=== PATIENT | male | born 1990 | race Caucasian/White ===

== ENCOUNTER 2016-04-28 02:59 | Emergency (ER) | payer BC ==
[~2016-04-28] VITALS: Ht 175.3 cm; Wt 82.0 kg
[2016-04-28 03:05] VITALS: TEMP 36.7; Ht 175.3 cm; Wt 82.0 kg
[2016-04-28] MEDS ORDERED: LIDOCAINE/EPINEPH/TETRACAINE 1 EA SYR EXT STA (03:16)
[2016-04-28] MEDS ORDERED: ATOR-24 PO (03:20)
[2016-04-28] MEDS ORDERED: FLUO40CA8 PO (03:21)
[2016-04-28] MEDS ORDERED: OXYCODONE IR HOME PACK PO ONE (04:00)
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
[2016-04-28 05:19] VITALS: BP 117/60; PULSE 96; O2SAT 95
--- NOTE | 2016-04-28 06:49 | DIAGNOSTIC IMAGING REPORT ---
HEAD CT NONCONTRAST CT DOSE: 537.48 mGy.cm HISTORY: head injury TECHNIQUE: Multiaxial CT images of the head were performed without the use of intravenous contrast. Comparison: None. Findings: The paranasal sinuses and mastoid air cells are clear. The calvarium and skull base are intact. The ventricles and sulci are within normal limits. There is no mass, hematoma, midline shift, or acute infarct. Impression: No acute intracranial abnormality. Electronically signed by: Vince Colunga M.D. 04/28/2016 6:47 AM Dictated Date/Time: 04/28/2016 6:47 AM
--- NOTE | 2016-04-28 08:15 | DIAGNOSTIC IMAGING REPORT ---
LEFT WRIST 5 VIEWS HISTORY: Left wrist pain. COMPARISON: None. FINDINGS: Tiny fracture at the dorsal aspect of the distal radius which is nondisplaced. No intra-articular extension. The scaphoid appears intact. Dorsal soft tissue swelling. No radiopaque foreign bodies. IMPRESSION: Tiny nondisplaced fracture at the dorsal aspect of the distal radius. Electronically signed by: Nael Llanes M.D. 04/28/2016 8:13 AM Dictated Date/Time: 04/28/2016 8:12 AM
== END 2016-04-28 05:20 | disposition home or self-care (01) ==
LOC: EDBD 02:59 → C.EDB 03:00
DX: S01.01XA Laceration without foreign body of scalp, initial encounter (principal); S62.102A Fracture of unspecified carpal bone, left wrist, initial encounter for closed fracture; Y04.0XXA Assault by unarmed brawl or fight, initial encounter